=== PATIENT | male | born 1970 | race Caucasian/White ===

== ENCOUNTER → 2021-09-14 | Outpatient (CLI) | payer OTHER | LOC: KOH-I 09:25 | DX: M47.22 Other spondylosis with radiculopathy, cervical region (principal); M47.26 Other spondylosis with radiculopathy, lumbar region; M54.6 Pain in thoracic spine | CPT/HCPCS: 72040; 72070; 72100 ==

== ENCOUNTER → 2022-02-13 | Outpatient (CLI) | payer OTHER | LOC: KOH-I 09:06 | DX: M25.512 Pain in left shoulder (principal) | CPT/HCPCS: 73030 ==